=== PATIENT | male | born 1940 | race Caucasian/White ===

== ENCOUNTER 2018-07-30 15:06 | Inpatient (IN) ==
--- NOTE | 2018-07-30 15:48 | Diag Imaging Result Doc PS360 ---
EXAM: CT HEAD W/O CONTRAST 07/30/2018 HISTORY: stroke like symptoms TECHNIQUE: This exam was performed using automated exposure control, adjustment of mA or kV according to patient size, and/or use of iterative reconstruction technique. COMMENT: There is no evidence of mass effect, bleed, or abnormal extra-axial fluid collection. Compared to 07/23/2015 the appearance the brain has not changed significantly. The visualized paranasal sinuses are clear. There is no evidence of acute bony abnormality. IMPRESSION: No evidence of acute intracranial disease. Electronically signed by Mendez Inman 07/30/2018 3:46 PM
[2018-07-30 15:49] LABS: BASO# 0.02 X1000 (0.0-0.2); BASO% 0.5 % (0.0-0.8); EOS# 0.17 X1000 (0.0-0.7); EOS% 4.3 % (0.0-10.0); HEMATOCRIT 39.4 % (42.0-52.0); HEMOGLOBIN 13.2 g/dL (14.0-18.0); IMM GRAN# 0.02 X1000 (0.0-0.04); IMM GRAN% 0.5 % (0.0-0.5); LYMPH# 1.25 X1000 (1.2-3.4); LYMPH% 31.7 % (20.5-51.1); MCH 29.5 PG (27-31); MCHC 33.5 g/dL (33-37); MCV 88.1 FL (81-99); MONO# 0.33 X1000 (0.11-0.59); MONO% 8.4 % (1.7-9.3); MPV 10.9 FL (7.4-10.4); NEUT# 2.15 X1000 (1.4-6.5); NEUT% 54.6 % (42.2-75.2); PLT 147 X1000 (130-400); RBC 4.47 XMIL (4.7-6.1); RDW 13.4 % (11.5-14.5); WBC 3.94 X1000 (4.8-10.8)
[2018-07-30 15:56] LABS: INR 0.89; PROTIME 12.8 Seconds (11.0-16.0)
[2018-07-30 15:57] LABS: PTT 27.3 Seconds (22.3-41.8)
--- NOTE | 2018-07-30 16:03 | Diag Imaging Result Doc PS360 ---
EXAM: CHEST-PORTABLE 07/30/2018 HISTORY: stroke like symptoms TECHNIQUE: AP portable at 1554 COMMENT: The inspiration is suboptimal. There is questionable opacity in the left lower lobe which was not present on 04/15/2018. IMPRESSION: Atelectasis versus pneumonia left lower lobe. Electronically signed by Mendez Inman 07/30/2018 4:00 PM
[2018-07-30 16:18] LABS: ALB/GLOB RATIO 1.7; ALBUMIN 3.9 g/dL (3.5-5.0); CALCIUM 8.7 mg/dL (8.8-10.2); CREATININE 1.4 mg/dL (0.7-1.2); POTASSIUM 4.6 mmol/L (3.5-5.1); TOTAL BILIRUBIN 0.39 mg/dL (0.20-1.00); TOTAL PROTEIN 6.2 g/dL (6.3-8.3)
[2018-07-30 17:05] LABS: URINE SOURCE CLEAN CATCH
[2018-07-30 17:14] LABS: BILIRUBIN URINE NEGATIVE (NEGATIVE); BLOOD URINE NEGATIVE (NEGATIVE); COLOR YELLOW; GLUCOSE URINE >1000 mg/dL (NEGATIVE); KETONE URINE NEGATIVE (NEGATIVE); LEUKOCYTES URINE NEGATIVE (NEGATIVE); NITRITE URINE NEGATIVE (NEGATIVE); PROTEIN URINE 100 mg/dL (NEGATIVE); SP GRAVITY URINE 1.016; TURBIDITY URINE CLEAR (CLEAR); UR EPITHELIAL CELLS <10 /HPF (<10); URINE BACTERIA NEGATIVE /HPF; URINE RBC <10 /HPF (<10); URINE WBC <10 /HPF (<10); UROBILINOGEN URINE NORMAL (NORMAL)
[2018-07-30] MEDS ORDERED: NS 1,000 ML IV ONE (18:03)
--- NOTE | 2018-07-30 19:03 | PROVIDER DOCUMENTATION ---
This chart was entered by Denisse Mcelroy Scribe, acting as scribe for Winnie Cat MD. HPI-Neurological Disorder - General Source: patient, family - History of Present Illness-Neuro Severity: reports: moderate Onset/Duration: reports: just prior to arrival Timing: reports: gone now Context: reports: impaired speech Character of Altered Mental Status: reports: confused, trouble concentrating Any recent trauma/injury?: reports: none Character of Deficits: reports: new weakness (generalized), impaired speech, decreased ability to walk. denies: impaired swallowing New weakness or altered sensation location:: reports: general (diffuse) Cognitive Baseline: alert, oriented x3 Gait Baseline: walks without assistance Associated Symptoms: reports: decreased ability to walk or stand, confusion, diaphoretic, slurred speech, weakness. denies: headache, neck/back pain, fever/chills, loss of consciousness, nausea, paresthesia, vomiting Similar Symptoms Previously?: No Recently seen or treated by another doctor?: No <Winnie Cat - Last Filed: 07/30/18 19:01> <Kamron Villafuerte - Last Filed: 07/30/18 19:52> - General Chief Complaint: Stroke-Like Symptoms Stated Complaint: STROKE LIKE SYMPTOMS Time Seen by Provider: 07/30/18 15:18 Allergies/Adverse Reactions: Patient Allergies Allergy/AdvReac Type Severity Reaction Status Date / Time No Known Allergies Allergy Verified 03/31/16 14:44 Home Medications: Home Medication List Medication Instructions Recorded Confirmed Last Taken Type Folic Acid 1 mg PO QAM 08/12/13 07/30/18 03/30/16 09:00 History Metoprolol Succinate E.r. [Toprol 50 mg PO QAM 08/12/13 07/30/18 03/30/16 09:00 History Xl] Simvastatin 40 mg PO QPM 08/12/13 07/30/18 03/30/16 20:00 History Aspirin 81 mg PO QAM 05/12/15 07/30/18 03/30/16 09:00 History Cholecalciferol (Vitamin D3) 2,000 unit PO QAM 05/12/15 07/30/18 03/30/16 09:00 History [Vitamin D3] Linagliptin [Tradjenta] 5 mg PO QAM 05/12/15 07/30/18 03/30/16 09:00 History Liraglutide [Victoza] 18 mg SQ QAM 05/12/15 07/30/18 03/30/16 09:00 History Furosemide 40 mg PO PRN PRN 01/15/16 07/30/18 03/30/16 09:00 History Pantoprazole [Protonix] 40 mg PO DAILY@0700 #30 tablet 03/31/16 07/30/18 Unknown Rx Promethazine [Phenergan] 25 mg PO Q6H PRN PRN #14 tablet 03/31/16 07/30/18 Unknown Rx - History of Present Illness-Neuro Nature of Presenting Problem: 77 yowm presents to the ed with his family. pt had x2 episodes that were 5 minutes in length where he could not speak or walk like at baseline. pt on exam all sx have resolved and pt denies any pain. (Winnie Cat) Review of Systems - Adult - REVIEW OF SYSTEMS - ADULT Constitutional: denies: chills, fever Eyes: reports: no symptoms reported Ears, Nose, Mouth & Throat: reports: no symptoms reported Cardiovascular: denies: chest pain, palpitations, syncope Respiratory: denies: cough, shortness of breath, wheezing Gastrointestinal: denies: abdominal pain, diarrhea, nausea, vomiting Genitourinary: reports: no symptoms reported Musculoskeletal: denies: back pain, neck pain Integumentary: reports: no symptoms reported Neurological: reports: see HPI, loss of balance, slurred speech. denies: dizziness/vertigo, headache/migraines, syncope, tremors Psychiatric: reports: no symptoms reported Endocrine: reports: no symptoms reported Hematologic/Lymphatic: reports: no symptoms reported Allergic/Immunologic: reports: no symptoms reported All Other Systems: Reviewed and Negative <Winnie Cat - Last Filed: 07/30/18 19:01> Past History - Adult - PAST MEDICAL HISTORY-ADULT Review of Records: reports: Old Records Reviewed, Nursing Assessment Review, Medications Reviewed, Social history reviewed & non-contributory. Major Childhood Illnesses: reports: denies history Cardiovascular: reports: CAD, HTN Respiratory: reports: denies history Gastrointestinal: reports: denies history Obstetrical/Gynecological: reports: denies history Genitourinary: reports: kidney disease Musculoskeletal: reports: denies history Hand Dominance: Right Handed Neurological: reports: denies history Psychiatric: reports: denies history Endocrine/Immune: reports: Diabetes Diabetes Type: Type 2 Other Conditions: reports: denies history - PRIOR SURGERIES/PROCEDURES Surgical/Procedure History: reports: appendectomy, CABG - IMMUNIZATION STATUS Childhood Immunizations: See Nurse Assessment Flu Vaccine: See Nurse Assessment - FAMILY HISTORY Family History: reviewed, not pertinent - SOCIAL HISTORY Smoking: denies Substance Use: denies Living Situation: family <Winnie Cat - Last Filed: 07/30/18 19:01> Physical Exam- Neurological - Physical Exam-Neuro Initial Vital Signs Reviewed: Yes General Appearance: appears well, alert, no apparent distress (pt is back to baseline) Eye Exam: bilateral eye: normal inspection, PERRL HENMT: normocephalic/atraumatic, moist mucous membranes, normal ENT inspection Head Injury: no evidence of injury Neck: non-tender, full range of motion, supple, normal inspection Respiratory: chest non-tender, lungs clear, normal breath sounds Cardiovascular: normal peripheral pulses, regular rate, rhythm Abdominal Exam: normal bowel sounds, non tender, soft Lymphatic: no adenopathy Extremity: normal range of motion, non-tender, normal gait, 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 Exam: normal hearing, normal speech, PERRL Coordination/Gait: normal finger to nose Motor/Sensory: no motor deficit, no sensory deficit, no pronator drift Neurologic: cardiology teacher II-XII nml as tested, grossly normal, no motor/sensory deficits Integumentary: normal color, normal turgor, warm/dry Psych/Mental Status: normal mood/affect, normal thought content, normal thought process, oriented x 3 - Glascow Coma Scale Best Eye Response: (4) open spontaneously Best Verbal Response: (5) oriented Best Motor Response: (6) obeys commands Total Glascow Score: 15 <Winnie Cat - Last Filed: 07/30/18 19:01> Progress - PLAN OF CARE/RESULTS Result Diagrams: 07/30/18 15:35 07/30/18 15:35 - REASSESSMENT Reassessment #1 Time Reassessed: 16:41 Status: improving Reassessment #2 Time Reassessed: 19:02 Status: other (Endorsed to Dr. Villafuerte at shift change.) - XRAY 1 XRAY: Bilateral XRAY Study: Chest Impression: See EMR Report (EXAM: CHEST-PORTABLE 07/30/2018 HISTORY: stroke like symptoms TECHNIQUE: AP portable at 1554 COMMENT: The inspiration is suboptimal. There is questionable opacity in the left lower lobe which was not present on 04/15/2018. IMPRESSION: Atelectasis versus pneumonia left lower lobe. Electronically signed by Mendez Inman 07/30/2018 4:00 PM 07/30/18 1600 Interpreting Physician: Mendez Inman MD Dictated Date/Time: 07/30/18 1559 cc: Winnie Cat MD; Renata Burns MD) - CT/MRI 1 CT Study: Head Impression: See EMR Report (EXAM: CT HEAD W/O CONTRAST 07/30/2018 HISTORY: stroke like symptoms TECHNIQUE: This exam was performed using automated exposure control, adjustment of mA or kV according to patient size, and/or use of iterative reconstruction technique. COMMENT: There is no evidence of mass effect, bleed, or abnormal extra-axial fluid collection. Compared to 07/23/2015 the appearance the brain has not changed significantly. The visualized paranasal sinuses are clear. There is no evidence of acute bony abnormality. IMPRESSION: No evidence of acute intracranial disease. Electronically signed by Mendez Inman 07/30/2018 3:46 PM 07/30/18 1546 Interpreting Physician: Mendez Inman MD Dictated Date/Time: 07/30/18 1544 cc: Winnie Cat MD; Renata Burns MD) - CONSULTS/PCP/HOSPITALIST Notification #1 *Consult/PCP/Hospitalist*: neuro HH Time Discussed: 16:23 Reason/Comments: phone consult Consult Disposition: other (Dr. Hassan states that teleNeurology consult, tPa not needed at this time. He recommends CT angiogram of head and neck and admission to the Hospitalist service.) <Winnie Cat - Last Filed: 07/30/18 19:01> - PLAN OF CARE/RESULTS Result Diagrams: 07/30/18 15:35 07/30/18 15:35 - CONSULTS/PCP/HOSPITALIST Notification #2 Consult: Dr Hartmann Time Discussed: 19:48 Consult Disposition: Will see in ED, Admit <Kamron Villafuerte. - Last Filed: 07/30/18 19:52> - PLAN OF CARE/RESULTS Progress/Plan/Lab Results: Vital Signs - 8 hr 07/30/18 15:13 07/30/18 15:17 07/30/18 15:54 Temperature 97.7 F Pulse Rate 88 Respiratory Rate 16 Blood Pressure 140/66 171/71 O2 Sat by Pulse Oximetry 97 07/30/18 15:55 07/30/18 16:00 07/30/18 16:10 Temperature Pulse Rate Respiratory Rate Blood Pressure O2 Sat by Pulse Oximetry 99 98 98 07/30/18 16:20 07/30/18 16:30 07/30/18 16:32 Temperature Pulse Rate 50 L Respiratory Rate 18 Blood Pressure 163/69 O2 Sat by Pulse Oximetry 97 98 97 07/30/18 16:34 Temperature Pulse Rate Respiratory Rate Blood Pressure O2 Sat by Pulse Oximetry 96 Laboratory Results - last 24 hr 07/30/18 07/30/18 07/30/18 15:26 15:35 15:35 WBC 3.94 L RBC 4.47 L Hgb 13.2 L Hct 39.4 L MCV 88.1 MCH 29.5 MCHC 33.5 RDW Std Deviation 13.4 Plt Count 147 MPV 10.9 H Immature Gran % (Auto) 0.5 Neut % (Auto) 54.6 Lymph % (Auto) 31.7 [place] % (Auto) 8.4 Eos % (Auto) 4.3 Baso % (Auto) 0.5 Immature Gran # (Auto) 0.02 Neut # (Auto) 2.15 Lymph # (Auto) 1.25 [place] # (Auto) 0.33 Eos # (Auto) 0.17 Baso # (Auto) 0.02 PT INR PTT (Actin FS) Sodium 138 Potassium 4.6 Chloride 100 Carbon Dioxide 23 L Anion Gap 15 BUN 34 H Creatinine 1.4 H Estimated GFR/1.73 m2 49 BUN/Creatinine Ratio 24 Glucose 203 H POC Glucose 230 H Calculated Osmolality 289 Calcium 8.7 L Total Bilirubin 0.39 AST 61 H ALT 39 Alkaline Phosphatase 150 H Troponin T Total Protein 6.2 L Albumin 3.9 Globulin 2.3 Albumin/Globulin Ratio 1.7 Urine Source Urine Color Urine Turbidity Urine pH Ur Specific [place] Urine Protein Ur Glucose (Stick) Ur Ketones (Stick) Urine Blood Urine Nitrite Urine Bilirubin Urobilinogen Dipstick Urine Leukocytes Urine WBC (Auto) Urine RBC (Auto) U Epithel Cells (Auto) Urine Bacteria (Auto) 07/30/18 07/30/18 07/30/18 15:35 15:35 16:57 WBC RBC Hgb Hct MCV MCH MCHC RDW Std Deviation Plt Count MPV Immature Gran % (Auto) Neut % (Auto) Lymph % (Auto) [place] % (Auto) Eos % (Auto) Baso % (Auto) Immature Gran # (Auto) Neut # (Auto) Lymph # (Auto) [place] # (Auto) Eos # (Auto) Baso # (Auto) PT 12.8 INR 0.89 PTT (Actin FS) 27.3 Sodium Potassium Chloride Carbon Dioxide Anion Gap BUN Creatinine Estimated GFR/1.73 m2 BUN/Creatinine Ratio Glucose POC Glucose Calculated Osmolality Calcium Total Bilirubin AST ALT Alkaline Phosphatase Troponin T < 0.010 Total Protein Albumin Globulin Albumin/Globulin Ratio Urine Source CLEAN CATCH Urine Color YELLOW Urine Turbidity CLEAR Urine pH 6.0 Ur Specific [place] 1.016 Urine Protein 100 A Ur Glucose (Stick) >1000 A Ur Ketones (Stick) NEGATIVE Urine Blood NEGATIVE Urine Nitrite NEGATIVE Urine Bilirubin NEGATIVE Urobilinogen Dipstick NORMAL Urine Leukocytes NEGATIVE Urine WBC (Auto) <10 Urine RBC (Auto) <10 U Epithel Cells (Auto) <10 Urine Bacteria (Auto) NEGATIVE Orders Category Date Time Status Cardiac Monitoring DIRECTED Care 07/30/18 15:20 Active Finger Stick Blood Sugar (ED) DIRECTED Care 07/30/18 15:20 Active Misc. NRSG Communication Order DIRECTED Care 07/30/18 15:20 Active Oxygen Therapy- ED Nursing DIRECTED Care 07/30/18 15:44 Active Saline Loc NOW Care 07/30/18 15:20 Active CHEST-PORTABLE [RAD] Stat Exams 07/30/18 15:[address] ANGIOGRAM HEAD/NECK [CT] Stat Exams 07/30/18 16:[address] HEAD W/O CONTRAST [CT] Stat Exams 07/30/18 15:20 Completed CBC WITH ELECTRONIC DIFF [HEME] Stat Lab 07/30/18 15:35 Completed COMPREHENSIVE METABOLIC PANEL [CHEM] Stat Lab 07/30/18 15:35 Completed PROTIME WITH INR [COAG] Stat Lab 07/30/18 15:35 Completed PTT [COAG] Stat Lab 07/30/18 15:35 Completed TROPONIN T Stat Lab 07/30/18 15:35 Completed URINALYSIS W/POSS RFLX CULT [URINALYSIS] Stat Lab 07/30/18 16:57 Completed 0.9% Sodium Chloride Inj [Ns] 1,000 ml Med 07/30/18 18:03 Discontinued IV 999 mls/hr ATORVAstatin [Lipitor] Med 07/30/18 21:00 Ordered 40 mg PO QHS Aspirin Med 07/30/18 19:50 Once 325 mg PO NOW ONE Cholecalciferol (Vitamin D3) [Vitamin D3] Med 07/31/18 09:00 Ordered 2,000 unit PO QAM Folic Acid Med 07/31/18 09:00 Ordered 1 mg PO QAM Metoprolol Succinate E.r. [Toprol Xl] Med 07/31/18 09:00 Ordered 50 mg PO QAM Pantoprazole [Protonix] Med 07/31/18 07:00 Ordered 40 mg PO DAILY@0700 Promethazine [Phenergan] Med 07/30/18 19:48 Ordered 25 mg PO Q6H PRN PRN EKG [EKG] Stat Ther 07/30/18 15:20 Ordered no TPA given to all sx resolved (Winnie Cat) Departure - Critical Care Note This patient required my direct & personal management of CC.: Yes Total Time (mins): 34 Critical Care Statement: This patient required my direct personal management to treat or rule out processes, the absence of which, could potentiallly result in sudden, clinically significant life or limb threatening deterioration. <Winnie Cat - Last Filed: 07/30/18 19:01> - Departure Date of Disposition Decision: 07/30/18 Time of Disposition Decision: 19:51 Certified Medical Emergency: Emergent <Kamron Villafuerte - Last Filed: 07/30/18 19:52> - Departure DIAGNOSIS: TIA (transient ischemic attack) Disposition: ADMITTED INPATIENT 09 Condition: Fair Referrals and Follow-Ups: Renata Burns MD [Primary Care Provider] - - Critical Care Note Comments: TIA (Winnie Cat) Attestation - Physician/ MERLYN Attestation Patient care was provided by Advanced Practice Provider:: No The physician spent face to face time with patient:: Yes Advanced Practice Provider documentation review:: Supervising physician onsite and consulted in the evaluation and care of this patient. The physician did have a face to face encounter with the patient. <Winnie Cat - Last Filed: 07/30/18 19:01> - NIH Stroke Scale NIH Type: Initial Evaluation Level of Consciousness: 0-Alert LOC Questions (ask month and age): 0-Answers Both Correctly LOC Commands (ask to open & close eyes;make a fist, let go): 0-Obeys Both Correctly Best Gaze (horizontal eye movement): 0-Normal Visual (use finger movement, counting or visual threat): 0-No Visual Loss Facial Palsy (show teeth or raise eyebrows & close eyes tght: 0-Symmetrical Movement Motor Function-left arm: 0-Normal Motor Function-right arm: 0-Normal Motor Function-left le-Normal Motor Function-right le-Normal Limb Ataxia([id number], or heel to starr): 0-No Ataxia Sensory(pin prick to face,arms,trunk,legs-compare side/side): 0-No Ataxia Best Language(name item/read sentence.Ex-Down to Earth): 0-No Aphasia Dysarthria(Pt read words or say words Ex.Mama,Tip-Top,Thanks: 0-Normal Articulation Extinction and Inattention: 0-Normal NIH Total Score: 0 <Winnie Cat - Last Filed: 07/30/18 19:01> This chart was documented by the indicated scribe, (Denisse Mcelroy Scribe) and accurately reflects the services I performed and decisions made by me, Winnie Cat MD, as attested by the provider's signature.
--- NOTE | 2018-07-30 19:04 | Diag Imaging Result Doc PS360 ---
EXAM: CT ANGIOGRAM HEAD/NECK 07/30/2018 HISTORY: TIA TECHNIQUE: This exam was performed using automated exposure control, adjustment of mA or kV according to patient size, and/or use of iterative reconstruction technique. COMMENT: 3-D MIPS were performed. There are no definite intracranial vascular abnormalities. There are some calcifications in the cavernous internal carotids bilaterally. There are dense calcifications in the proximal internal carotid artery on the left just above the bulb. There may be 50% diameter stenosis. There is a high-grade stenosis of the proximal right internal carotid artery with calcific and noncalcific plaque just above the bulb. There are no carotid Doppler ultrasound examinations available for correlation. This could easily be more than 70% diameter stenosis. There is some calcific plaque formation in both common carotid arteries. There is calcification in the brachiocephalic artery and the aortic arch. There are some nonspecific mediastinal nodes. There are spondylotic changes in the cervical spine. IMPRESSION: High-grade stenosis of the proximal right internal carotid artery. Electronically signed by Mendez Inman 07/30/2018 7:01 PM
[2018-07-30] MEDS ORDERED: PHENERGAN PO PRN (19:48)
[2018-07-30] MEDS ORDERED: ASPIRIN PO ONE (19:50)
[2018-07-30] MEDS ORDERED: TYLENOL PO PRN (19:51)
[2018-07-30] MEDS ORDERED: ZOFRAN IV PRN (19:51)
[2018-07-30 21:18] LABS: HEMOGLOBIN A1C 7.7 % (4.8-6.0)
[2018-07-30] MEDS: LIPITOR PO SCH (22:14)
[2018-07-30] MEDS: HUMALOG SUBQ SCH (22:14)
[2018-07-30] MEDS: LOVENOX SUBQ SCH (22:16)
[2018-07-31] MEDS: HUMALOG SUBQ SCH ×6 (01:48→20:43)
--- NOTE | 2018-07-31 05:44 | HISTORY AND PHYSICAL ---
CHIEF COMPLAINT: Stroke-like symptoms. HISTORY OF PRESENT ILLNESS: Mr. Mock is a 77-year-old male with a history of diabetes mellitus, COPD, chronic kidney disease, hypertension, coronary artery disease, hyperlipidemia, solitary kidney and obesity, who comes into the emergency room tonight with 2 episodes that were roughly 5 minutes in length where he could not speak or walk like his normal baseline. They did not make any mention of facial drooping. However, they stated that he had very slurring movement, and searching for words and a very ataxic gait. On arrival to the emergency room, all symptoms had resolved. A CT of his head was obtained which showed no acute intracranial process. Neurology at [facility] was spoken to who recommended a CT angio- of the head and neck which showed a high-grade stenosis of the proximal right internal carotid artery. He will be admitted for further evaluation and treatment. PAST MEDICAL HISTORY: See HPI. PREVIOUS SURGICAL HISTORY: 1. Cholecystectomy. 2. Left nephrectomy. 3. Coronary artery bypass graft. 4. Appendectomy. SOCIAL HISTORY: No tobacco, alcohol or illicit drugs. He is . FAMILY HISTORY: Coronary artery disease and diabetes mellitus in first-degree relatives. ALLERGIES: No known drug allergies. HOME MEDICATIONS: A list of home medications was not reconciled. An order was placed for Nursing to reconcile home medication. These will be restarted when appropriate. REVIEW OF SYSTEMS: Fourteen point review of systems conducted with the patient. Pertinent positives listed above in the HPI. All other systems reviewed and found to be negative. PHYSICAL EXAMINATION: VITAL SIGNS: Temperature 98.3, pulse 56, respirations 18, blood pressure 163/69, oxygen saturation 99% on room air. GENERAL: Pleasant 77-year-old male alert and oriented times 3, answers all questions appropriately. HEENT: Head is atraumatic, normocephalic. Pupils equal, round, reactive to light. Extraocular eye movement intact. Sclerae are anicteric. Conjunctiva is pink. Oral mucosa is moist. NECK: Supple. No JVD. No thyromegaly. Trachea is midline. No cervical lymphadenopathy. No carotid bruit on auscultation. CARDIAC: S1, S2 appreciated. No murmurs, gallops, rubs. LUNGS: Clear to auscultation bilaterally. No rhonchi, wheezes, rales. Symmetric rise and fall with respirations. ABDOMEN: Soft, nondistended, nontender. Bowel sounds present all 4 quadrants, normoactive. No pulsatile mass. No organomegaly. EXTREMITIES: No clubbing, cyanosis, or edema. NEUROLOGICAL: Alert and oriented times 3. Cranial nerves II through XII grossly intact. DIAGNOSTIC DATA: CT angio- of the head and neck shows a high-grade stenosis of the proximal right internal carotid artery. LABORATORY DATA: WBC 3.94. Hemoglobin 13.2. Hematocrit 39.4. Platelet count 147. Coagulation studies within normal limits. Sodium 138. Potassium 4.6. Chloride 100. Carbon dioxide 23. BUN 34. Creatinine 1.4. Glucose 203. Urine: Greater than 1000 glucose. ASSESSMENT AND PLAN: 1. Transient ischemic attack. Patient's neurological symptoms have resolved. He was noted to have a high-grade stenosis of the proximal right internal carotid artery. We will order echocardiogram this morning. Continue to do neuro checks. Check lipid profile. We will change the patient to atorvastatin 40 mg p.o. daily, start 325 aspirin p.o. daily. 2. Diabetes mellitus type 2. Hold home antihyperglycemics. Check hemoglobin A1c. Patient is hyperglycemic. We will treat with sliding scale insulin. 3. Hypertension. Continue home medications. We will allow for permissive hypertension tonight. However, it does not appear that he has had a CVA. 4. Hyperlipidemia. Atorvastatin 40 daily. 5. Chronic renal insufficiency secondary to solitary kidney. Continue to monitor labs. Further recommendations per patient clinical course. Dictated by PETEY Amanda for Kristopher Hartmann MD I have performed a face to face diagnostic evaluation. Labs/ Imaging - reviewed. Exam- Neuro - non focal. A/P- TIA- Admit- r/o CVA, Neurology consult Dr. Hartmann cc: PETEY Amanda MD [facility]
[2018-07-31] MEDS: PROTONIX PO SCH (06:06)
[2018-07-31 07:06] LABS: CALCIUM 9.3 mg/dL (8.8-10.2); CREATININE 1.4 mg/dL (0.7-1.2); POTASSIUM 4.2 mmol/L (3.5-5.1)
[2018-07-31] MEDS: PRILOSEC PO SCH (08:40)
[2018-07-31] MEDS: VITAMIN D PO SCH (08:40)
[2018-07-31] MEDS: CYMBALTA PO SCH (08:40)
[2018-07-31] MEDS: NORCO-7.5 PO SCH ×3 (08:41→20:42)
[2018-07-31] MEDS: TOPROL XL PO SCH (08:41)
[2018-07-31] MEDS: ASPIRIN PO SCH (08:41)
[2018-07-31] MEDS: FOLIC ACID PO SCH (08:41)
[2018-07-31] MEDS: TRICOR PO SCH (08:41)
[2018-07-31] MEDS: NON-FORMULARY MED (Dapagliflozin Propanediol [Farxiga] 0 MG) PO SCH (10:16)
--- NOTE | 2018-07-31 13:58 | ECHO REPORT ---
ORDER DATE: 07/31/2018 INDICATION: Transient ischemic attack. FINDINGS: 1. The right atrium appears normal in size at 3.6 cm. 2. Mild tricuspid regurgitation. RV systolic pressure of 44. 3. Normal RV size and systolic function. 4. Trace pulmonic insufficiency. 5. Mild left atrial enlargement with a volume index of 28. 6. No mitral prolapse. Mild mitral regurgitation. 7. Normal LV size, end-diastolic dimension of 4.7. 8. Mild left ventricular hypertrophy with a posterior and interventricular septal wall thickness 1.1 and 1.3 cm respectively. Normal LV systolic function. Estimated EF of 60% to 65% with normal wall motion. 9. Aortic valve opens well. It is trileaflet with no evidence of stenosis or insufficiency. 10. Aorta appears normal in visualized segments. 11. No pericardial effusion seen. cc: MD Michael Antony CRNP
--- NOTE | 2018-07-31 15:53 | PROGRESS NOTE ---
DATE: 07/31/2018 SUBJECTIVE: Patient has no major complaints. He had several episodes yesterday of dysarthria which started around 3 p.m. He says he had a couple episodes after that. OBJECTIVE DATA: Vital Signs: BP 140/66, heart rate 73, respiratory rate 20, temperature 98.1 degrees, satting 100% on room air. Cardiovascular: Regular rate and rhythm. Pulmonary: Bilateral breath sounds. Clear to auscultation. GI: Soft, nontender, nondistended. Bowel sounds are positive. LABORATORY DATA: LDL looks good. Creatinine is up a little bit at 1.4. PROBLEM LIST: 1. Transient ischemic attack. Symptoms have resolved, although it has been less than 24 hours since his last episode, but he seems to be doing okay. He does have a high-grade stenosis of his right internal carotid, so more than 70%. I have ordered a carotid Doppler and we will follow. It does not clearly feel like he has had a stroke, but I am not sure if he does not have symptomatic carotid disease. I have asked for a surgical consult as well, and we will continue to work on secondary risk factor modification. Carotid will answer what the flow is, although the angiogram was very specific. I am going to continue hydration, avoid nephrotoxic medications, and follow closely. Once we have completed that, we will get a surgical opinion. 2. Diabetes. We will continue his medications. We have good control. His A1c is about 7.7. I will change him to Lipitor, though, as he obviously has a coronary artery disease equivalent with carotid stenosis. DISPOSITION: Pending his clinical status, we will continue full dose aspirin versus aspirin and Plavix, and see how he does. cc: Charlie Carbajal MD
[2018-07-31] MEDS: NS 1,000 ML IV SCH (16:48)
[2018-07-31] MEDS: LIPITOR PO SCH (20:42)
[2018-07-31] MEDS: LOVENOX SUBQ SCH (20:43)
[2018-07-31] MEDS ORDERED: LIPITOR PO SCH (21:00)
[2018-08-01] MEDS: NORCO-7.5 PO SCH ×3 (04:10→15:48)
[2018-08-01] MEDS: NS 1,000 ML IV SCH (04:10)
[2018-08-01] MEDS: HUMALOG SUBQ SCH ×2 (06:08→11:33)
[2018-08-01] MEDS: PROTONIX PO SCH (06:08)
[2018-08-01 07:15] LABS: CALCIUM 9.3 mg/dL (8.8-10.2); CREATININE 1.3 mg/dL (0.7-1.2); POTASSIUM 4.5 mmol/L (3.5-5.1)
[2018-08-01] MEDS ORDERED: VICTOZA SUBQ SCH (09:00)
[2018-08-01] MEDS ORDERED: TRADJENTA PO SCH (09:00)
[2018-08-01] MEDS ORDERED: AMARYL PO SCH (09:00)
[2018-08-01] MEDS: ASPIRIN PO SCH (09:18)
[2018-08-01] MEDS: PRILOSEC PO SCH (09:18)
[2018-08-01] MEDS: FOLIC ACID PO SCH (09:18)
[2018-08-01] MEDS: TOPROL XL PO SCH (09:18)
[2018-08-01] MEDS: TRICOR PO SCH (09:18)
[2018-08-01] MEDS: CYMBALTA PO SCH (09:18)
[2018-08-01] MEDS: VITAMIN D PO SCH (09:19)
[2018-08-01] MEDS: NON-FORMULARY MED (Dapagliflozin Propanediol [Farxiga] 0 MG) PO SCH (09:19)
[2018-08-01 11:18] VITALS: BP 178/67
--- NOTE | 2018-08-01 15:27 | DISCHARGE SUMMARY ---
ADMISSION DATE: 07/30/2018 DISCHARGE DATE: DISCHARGE DIAGNOSES: 1. Transient ischemic attack, significant carotid stenosis on the right side the right proximal internal carotid. 2. Hypertension. Briefly this is a pleasant 77-year-old male who has a history of diabetes, CAD, who sees Dr. Viera, who came in with a few episodes of dysarthria and ataxia. Workup in the ER was negative including head CT. He was placed on aspirin and at higher dose atorvastatin. His CTA showed a high-grade stenosis of the proximal right internal carotid artery that was at least 70% now our carotid Doppler which was done showed a range of 60 to 79 percent. Echocardiogram which was obtained for TIA workup was pretty unremarkable. EF was 60-65%, some mild LVH. His symptoms completely resolved. I did consult Dr. Mcelroy but I do not have a note yet from him, but I think he is a candidate for carotid endarterectomy since he has greater than 70% blockage in symptoms but he will likely need cardiac clearance 1st. We discussed that he will need to get in with Dr. Viera possibly for stress test or preop evaluation and then decide about safety of proceeding with surgery. The patient was to return for any neurological change. We did upgrade his atorvastatin from simvastatin to Lipitor 40, may need to even consider 80 and we put him on aspirin 81 mg and Plavix. Additional medications Protonix 40, Phenergan, vitamin D3, Victoza 1.8 daily, Tricor 145 daily, Tradjenta 5 daily, Toprol-XL 50 daily, Prilosec 40 daily, glimepiride 40 daily, Lasix 40 p.r.n., folic acid 1 daily, dapagliflozin 5 daily, Cymbalta 60 daily, [place] p.r.n. Recommend follow up with Dr. Burns, Dr. Mcelroy after preop evaluation and Dr. Viera. TIME SPENT: 32 minutes. cc: Venkat Viera MD
--- NOTE | 2018-08-04 14:31 | Carotid Study ---
DATE: 07/31/2018 PROCEDURE: Bilateral duplex and color flow imaging of the carotid arteries performed using the [employer] Vivid E9 ultrasound system with a 9L-D transducer. REFERRING PHYSICIAN: Charlie Carbajal MD. INTERPRETING PHYSICIAN: Shea Mcelroy MD. TECH: Bria Suh [facility]. INDICATIONS: A 77-year-old male, transient ischemic attack. OBSERVED DATA RIGHT LEFT Brachial Blood Pressure Carotid Pulse Bruits: Carotid/Sub DIAGRAM OF ULTRASOUND IMAGING R L RIGHT INT EXT INT EXT LEFT Gavino (cm/s) Gavino (cm/s) Subclavian 86/0 Subclavian 106/0 CCA Proximal 55/9 CCA Proximal 95/10 CCA Distal 53/10 CCA Distal 87/13 Bulb 85/10 Bulb 72/10 ICA Proximal 46/9 ICA Proximal 76/10 ICA Mid 193/26 ICA Mid 70/13 ICA Distal 123/15 ICA Distal 64/11 ECA 93/0 ECA 85/10 Vertebral 50/10 Forward flow Vertebral 58/8 Forward flow ICA/CCA Ratio 3.53 ICA/CCA Ratio 0.80 % Stenosis 60-79% % Stenosis 0-39% PHYSICIAN INTERPRETATION: Severe atherosclerotic disease at the takeoff of the right internal carotid artery, which is approaching hemodynamic significance. There is only mild atherosclerotic disease in the left carotid system without evidence of a hemodynamically significant lesion on that side. cc: MD Charlie Martinez MD
== END 2018-08-01 16:12 | disposition home or self-care (01) | DRG 68 ==
LOC: ED 15:06 → 3N 20:27 → SUATTDRO 20:27
PROVIDERS: ATTEND Internal Medicine
CPT/HCPCS: 70450; 70496; 70498; 71010; 71045; 80048; 80053; 80061; 81001; 82948; 83036; 83721; 84484; 85025; 85610; 85730; 93005; 93306; 93880; 94760; 99285; A9270; J1650; J1815; J7030; Q9967; XXXXX